=== PATIENT | male | born 1990 | race American Indian/Alaskan Native ===

== ENCOUNTER 2021-01-03 12:01 | Emergency (ER) | payer OTHER ==
[2021-01-03 12:43] VITALS: BP 144/77
--- NOTE | 2021-01-03 13:48 | Emergency Department Report ---
ED General Adult HPI - General Chief complaint: Wound/Laceration Stated complaint: INFECTED WOUND Time Seen by Provider: 01/03/21 13:02 Source: patient Mode of arrival: Ambulatory Limitations: No Limitations - History of Present Illness Initial comments: 30-year-old -[place] male patient presents with complaints of infected wound to the chin x4 days. Patient states on 12/30/2020, he had a procedure performed to remove scar tissue from the chin by a plastic surgeon. He states the next day purulent drainage began to drain with increased swelling. Patient states he was placed on Bactrim and has been taking it for 3 days now. He states the purulent discharge has decreased and the swelling has decreased. He denies any fever/chills/sweats, redness to the area, or new/worsening pain. No prior medical history per patient Severity scale (0 -10): 1 - Related Data Previous Rx's Medication Instructions Recorded Last Taken Type Mupirocin [Bactroban 2% OINT] 1 applic TP TID 7 Days #1 tube 01/03/21 Unknown Rx Allergies Allergy/AdvReac Type Severity Reaction Status Date / Time No Known Allergies Allergy Unverified 01/03/21 12:41 ED Review of Systems ROS: Stated complaint: INFECTED WOUND Other details as noted in HPI Constitutional: denies: chills, fever, malaise, weakness ENT: denies: throat pain Skin: as per HPI. denies: change in color Hematological/Lymphatic: denies: swollen glands ED Past Medical Hx - Past Medical History Previous Medical History?: Yes Additional medical history: Scar tissue in chin - Surgical History Past Surgical History?: Yes Additional Surgical History: Chin - Medications Home Medications: Home Medications Medication Instructions Recorded Confirmed Last Taken Type Mupirocin [Bactroban 2% OINT] 1 applic TP TID 7 Days #1 tube 01/03/21 Unknown Rx ED Physical Exam - General Limitations: No Limitations General appearance: alert, in no apparent distress - Head Head exam: Present: normocephalic, other (Linear wound noted to chin with mild purulent drainage; no tenderness to palpation noted; mild swelling without surrounding cellulitic changes noted) - Eye Eye exam: Present: normal appearance - Neck Neck exam: Present: normal inspection. Absent: lymphadenopathy - Respiratory Respiratory exam: Absent: respiratory distress - Cardiovascular Cardiovascular Exam: Present: regular rate - Neurological Exam Neurological exam: Present: alert, oriented X3 - Psychiatric Psychiatric exam: Present: normal affect, normal mood - Skin Skin exam: Present: warm, dry, normal color. Absent: rash, erythema ED Course Vital Signs 01/03/21 12:42 Temperature 98.8 F Pulse Rate 71 Respiratory 16 Rate Blood Pressure 144/77 [Right] O2 Sat by Pulse 98 Oximetry ED Medical Decision Making - Medical Decision Making 30-year-old -[place] male patient presents with complaints of infected wound to the chin x4 days. Patient states on 12/30/2020, he had a procedure performed to remove scar tissue from the chin by a plastic surgeon. He states the next day purulent drainage began to drain with increased swelling. Patient states he was placed on Bactrim and has been taking it for 3 days now. He states the purulent discharge has decreased and the swelling has decreased. He denies any fever/chills/sweats, redness to the area, or new/worsening pain. No prior medical history per patient Infected surgical wound noted. Given improvement on Bactrim, recommend continuation of this antibiotic. Prescription for mupirocin given. Discussed wound care and signs symptoms that should prompt immediate return to the emergen cy department in detail with patient who verbalizes understanding. Patient states he has a follow-up with his surgeon on Tuesday of this week. Wound culture sent. Critical care attestation.: If time is entered above; I have spent that time in minutes in the direct care of this critically ill patient, excluding procedure time. ED Disposition Clinical Impression: Wound infection Disposition: - TO HOME OR SELFCARE Is pt being admited?: No Condition: Stable Instructions: Wound Infection Additional Instructions: Please follow up with your surgeon as scheduled 01/06/21 Prescriptions: Mupirocin [Bactroban 2% OINT] 1 applic TP TID 7 Days #1 tube Referrals: PRIMARY CARE,MD [Primary Care Provider] - 3-5 Days
== END 2021-01-03 14:09 | disposition home or self-care (01) ==
LOC: ED 12:01
DX: T81.49XA Infection following a procedure, other surgical site, initial encounter (principal); L08.9 Local infection of the skin and subcutaneous tissue, unspecified; Z98.890 Other specified postprocedural states; Z79.899 Other long term (current) drug therapy; Y92.89 Other specified places as the place of occurrence of the external cause
CPT/HCPCS: 87116; 99282